=== PATIENT | male | born 1965 | race Caucasian/White ===

== ENCOUNTER 2017-11-19 18:40 | Observation (INO) ==
[2017-11-19] MEDS ORDERED: Tetanus/Diphtheria Toxoid Adult Vaccine Inj 0.5 ML Vial IM ONE (20:27)
[2017-11-19] MEDS ORDERED: Lisinopril 10 MG Tablet PO ONE (20:27)
[2017-11-19] MEDS ORDERED: Sod Chloride 0.9% Inj 1,000 ML IV.CONT SCH (20:30)
--- NOTE | 2017-11-19 20:37 | ED ---
HPI General Chief complaint: Neuro Symptoms/Deficit Stated complaint: Neuro/Stroke Symptoms Time Seen by Provider: 11/19/17 20:15 History of Present Illness HPI narrative: This is a 52-year-old male with history of hypertension presents for evaluation. Reports that this afternoon he was walking his dog when he developed a headache and right eye blurred vision. Symptoms lasted for several minutes and then resolved. Currently asymptomatic. He reports that he has a history of central retinal vein occlusion in his right eye 2008 with his vision essentially normal for the past several years in his right eye. He reports history of central retinal vein occlusion in the left eye in 2017 with significant vision loss since then. Reports a history of hypertension, has been off of his lisinopril for several months. He reports that he is currently homeless, living in his car, traveled down from [place] a few months ago. Denies chest pain, shortness of breath, nausea or vomiting, slurred speech , facial droop, numbness or tingling or weakness in extremities. No Other complaints. Related Data Allergies Allergy/AdvReac Type Severity Reaction Status Date / Time No Known Allergies Allergy Unverified 11/19/17 20:27 Review of Systems Except as stated in HPI: all other systems reviewed are negative PMFSH Medical History Medical History Central retinal vein occlusion of both eyes (Acute) Hypertension (Acute) Social History Social History Substance History: No History of Abuse Smoking Status: Never smoker How Often Do You Have a Drink Containing Alcohol: Never Recent Travel in [facility] within the Last 8 Weeks: No Recent Out of Country Travel within the Last 8 Weeks: No Immunization History Tetanus Immunization: >5 Years Hx Influenza Vaccine This Season: No Exam Narrative Exam Narrative: GENERAL: Well-nourished male in no acute distress SKIN: Warm and dry. Superficial linear scabbed abrasions noted on the extremities. HEAD: Atraumatic. Normocephalic. EYES: Pupils equal and round reactive to light extraocular muscles are intact ENT: No nasal bleeding or discharge. Mucous membranes pink and moist. NECK: Trachea midline. No JVD. CARDIOVASCULAR: Regular rate and rhythm. No murmur appreciated. RESPIRATORY: No accessory muscle use. Clear to auscultation. Breath sounds equal bilaterally. GASTROINTESTINAL: Abdomen soft, non-tender, nondistended. Hepatic and splenic margins not palpable. MUSCULOSKELETAL: No obvious deformities. No clubbing. No cyanosis. No edema. NEUROLOGICAL: Awake and alert. No obvious cranial nerve deficits. Motor grossly within normal limits. Normal speech. No extremity drift, normal finger to nose, heel to ambrosio bilaterally PSYCHIATRIC: Appropriate mood and affect; insight and judgment normal. Course Initial Documented Vital Signs Temperature 98.9 F 11/19/17 18:46 Pulse Rate 104 H 11/19/17 18:46 Respiratory Rate 16 11/19/17 18:46 Blood Pressure 163/115 H 11/19/17 18:46 Pulse Oximetry 97 11/19/17 18:46 Last Documented Vital Signs Temperature 98.9 F 11/19/17 18:46 Pulse Rate 104 H 11/19/17 18:46 Respiratory Rate 16 11/19/17 18:46 Blood Pressure 163/115 H 11/19/17 18:46 Pulse Oximetry 96 11/19/17 20:38 Medical Decision Making CHRISTA Attestation CHRISTA supervised visit: Yes Attestation: I, Dr. Hutson, have reviewed the advance practice practitioner's documentation and am in agreement, met with the patient face to face, made the diagnosis, and the medical decision making was done by me. *My assessment and Findings: patient will be admitted for TIA workup MDM Narrative Medical decision making narrative: The patient was placed on ECG monitoring pulse oximetry. A 12-lead EKG was obtained revealing sinus rhythm with rate of 97, lab work, CT the brain has been ordered. The patient has what appears to be self-inflicted scabbed abrasions on the extremities. He reports that he was upset a few weeks ago given his homeless situation and out of frustration he used a blade to cut himself. He denies any suicidal ideation however. He denies doing anything else to hurt himself. Lab work is unremarkable. CT of the brain reveals no acute abnormalities. The patient was given a full dose aspirin. At this point time the plan is to admit him for further evaluation and treatment of potential TIA. He is agreeable. Differential Diagnosis Differential Diagnosis: TIA, central retinal vein occlusion, central retinal artery occlusion CVA, acute glaucoma Lab Data Result diagrams: 11/19/17 21:00 11/19/17 21:00 Lab Results 11/19/17 11/19/17 11/19/17 Range/Units 21:00 21:00 21:00 WBC 9.2 (4.0-11.0) th/mm3 RBC 4.98 (4.50-5.90) mil/mm3 Hgb 15.4 (13.0-17.0) gm/dL Hct 43.4 (39.0-51.0) % MCV 87.2 (80.0-100.0) fL MCH 30.9 (27.0-34.0) pg MCHC 35.5 (32.0-36.0) % RDW 12.6 (11.6-17.2) % Plt Count 285 (150-450) th/mm3 MPV 7.9 (7.0-11.0) fL Neut % (Auto) 57.4 (16.0-70.0) % Lymph % (Auto) 30.9 (9.0-44.0) % [place] % (Auto) 10.0 H (0.0-8.0) % Eos % (Auto) 0.9 (0.0-4.0) % Baso % (Auto) 0.8 (0.0-2.0) % Neut # (Auto) 5.3 (1.8-7.7) th/mm3 Lymph # (Auto) 2.9 (1.0-4.8) th/mm3 [place] # (Auto) 0.9 (0.0-0.9) th/mm3 Eos # (Auto) 0.1 (0.0-0.4) th/mm3 Baso # (Auto) 0.1 (0.0-0.2) th/mm3 WBC Differential . Differential Comment Auto diff final PT 10.7 (9.8-11.6) sec INR 1.1 Ratio APTT 24.6 (24.3-30.1) sec Sodium 139 (136-145) meq/L Potassium 3.8 (3.5-5.1) meq/L Chloride 105 (98-107) meq/L Carbon Dioxide 25.2 (21.0-32.0) meq/L Anion Gap 9 (5-15) meq/L BUN 15 (7-18) mg/dL Creatinine 0.87 (0.60-1.30) mg/dL Estimated GFR Greater than 89 (>89) mL/min Random Glucose 128 H (74-106) mg/dL Calcium 9.3 (8.5-10.1) mg/dL Total Creatine Kinase 131 (39-308) U/L CK-MB (CK-2) 1.3 (0.5-3.6) ng/mL Troponin I Less than 0.02 L (0.02-0.05) ng/mL Imaging Data Radiologist's impression: Head CT 11/19/17 20:27 CONCLUSION: 1. No acute findings in the brain. . Discharge Plan Discharge Disposition Patient Disposition: 30 Still Patient Discharge Condition Condition: Stable Discharge Details Diagnosis: Transient ischemic attack Physicians Team ED Provider: Yakelin Hutson ED Midlevel Provider: Richar Bray Primary Care Provider: Primary Care Meera Santana Attending Provider: Yakelin Macias Status ED Status: With Doctor
[2017-11-19 21:16] LABS: Baso # (Auto) 0.1 th/mm3 (0.0-0.2); Baso % (Auto) 0.8 % (0.0-2.0); Eos # (Auto) 0.1 th/mm3 (0.0-0.4); Eos % (Auto) 0.9 % (0.0-4.0); Hematocrit 43.4 % (39.0-51.0); Hemoglobin 15.4 gm/dL (13.0-17.0); Lymph # (Auto) 2.9 th/mm3 (1.0-4.8); Lymph % (Auto) 30.9 % (9.0-44.0); Mean Corpuscular HGB Conc 35.5 % (32.0-36.0); Mean Corpuscular Hemoglobin 30.9 pg (27.0-34.0); Mean Corpuscular Volume 87.2 fL (80.0-100.0); Mean Platelet Volume 7.9 fL (7.0-11.0); Mono # (Auto) 0.9 th/mm3 (0.0-0.9); Neut # (Auto) 5.3 th/mm3 (1.8-7.7); Neut % (Auto) 57.4 % (16.0-70.0); Platelet Count 285 th/mm3 (150-450); Red Blood Count 4.98 mil/mm3 (4.50-5.90); Red Cell Distribution Width 12.6 % (11.6-17.2); White Blood Count 9.2 th/mm3 (4.0-11.0)
[2017-11-19 21:27] LABS: Activated Partial Thrombo Time 24.6 sec (24.3-30.1); INR 1.1 Ratio; Prothrombin Time 10.7 sec (9.8-11.6)
[2017-11-19 21:37] LABS: Anion Gap 9 meq/L (5-15); Blood Urea Nitrogen 15 mg/dL (7-18); Calcium 9.3 mg/dL (8.5-10.1); Carbon Dioxide 25.2 meq/L (21.0-32.0); Chloride 105 meq/L (98-107); Glomerular Filtration Rate Greater Than 89 mL/min (>89); Glucose,Random 128 mg/dL (74-106); Potassium 3.8 meq/L (3.5-5.1); Sodium 139 meq/L (136-145)
[2017-11-19 21:41] LABS: Creatine Kinase 131 U/L (39-308)
[2017-11-19 21:53] LABS: Creatine Kinase MB 1.3 ng/mL (0.5-3.6)
--- NOTE | 2017-11-19 23:01 | CT ---
EXAM DATE: 11/19/2017 10:39 PM EDT AGE/SEX: 52 years / Male INDICATIONS: Vision changes. CLINICAL DATA: This is the patient's initial encounter. Patient reports that signs and symptoms have been present for 1 day and indicates a pain score of 0/10. MEDICAL/SURGICAL HISTORY: Cerebrovascular disease. None. RADIATION DOSE: 56.35 CTDI (mGy) COMPARISON: No prior exams available for comparison. TECHNIQUE: CT of the head without contrast. Using automated exposure control and adjustment of the mA and/or kV according to patient size, radiation dose was kept as low as reasonably achievable to ob tain optimal diagnostic quality images. DICOM format image data is available electronically for revi ew and comparison. FINDINGS: Cerebrum: The ventricles are normal for age. No evidence of midline shift, mass lesion, hemorrhage or acute infarction. No extraaxial fluid collections are seen. Posterior Fossa: The cerebellum and brainstem are intact. The 4th ventricle is midline. The cerebe llopontine angle is unremarkable. Extracranial: The visualized portion of the orbits is intact. Skull: The calvaria is intact. No evidence of skull fracture. CONCLUSION: 1. No acute findings in the brain. . Electronically signed by: Calixto Turcios MD 11/19/2017 11:00 PM EDT
[2017-11-19] MEDS ORDERED: Aspirin 325 MG Tablet PO ONE (23:02)
[2017-11-20] MEDS ORDERED: Dextrose 50% in Water 50 ML Vial IV.PUSH PRN (00:32)
--- NOTE | 2017-11-20 01:00 | P.HP ---
History of Present Illness Service: [facility] Primary Care Physician: No Primary Care Physician History of Present Illness: 52-year-old male with past medical history significant for hypertension and history of retinal vein occlusion presents the emergency department for the evaluation of lightheadedness and blurry vision. 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 He states the symptoms were similar in his right eye today when his vision became blurry. The symptoms have now resolved. The patient denies any headaches. No fever/chills. No nausea/vomiting/diarrhea. No chest pain or shortness of breath. Review of Systems All other systems reviewed negative except as stated in HPI PMFSH - History History Provided By: Patient - Medical / Surgical Hx Neg / Unobtainable Surgical History: No Previous Surgery - Medical History Medical History: Medical History (Last Updated 11/19/17 @ 20:22 by Yakelin Maay) Central retinal vein occlusion of both eyes Hypertension - Family History Family History: Family History (Last Updated 11/20/17 @ 00:50 by Yakelin Macias MD) Other Diabetes - Tobacco History Smoking Status: Never smoker - Alcohol History How Often Do You Have a Drink Containing Alcohol: Never - Substance Use History Substance History: No History of Abuse - Travel History Recent Travel in the [place] Within the Last 8 Weeks: No Recent Travel Out of the Country Within the Last 8 Weeks: No - Immunization History Tetanus Immunization: >5 Years Hx Influenza Vaccine This Season: No Medications and Allergies Active Medications: Active Medications Dextrose (D50w Vial) 50 ml IV.PUSH UNSCH PRN PRN Reason: PER HYPOGLYCEMIA PROTOCOL Glucagon (Glucagon Inj) 1 mg OTHER PRN PRN PRN Reason: for Hypoglycemia Protocol Sodium Chloride (Ns Inj) 1,000 mls @ 70 mls/hr IV.CONT .[id number] CHARLY Stop: 11/20/17 10:47 Last Admin: 11/20/17 00:21 Dose: 70 mls/hr Insulin Aspart (Novolog Insulin Correctional Sugar Inj) 0 unit SQ ACHS CHARLY; Protocol Sodium Chloride (Ns Flush) 2 ml IV.FLUSH PRN PRN PRN Reason: FLUSH AFTER USING IV ACCESS Last Admin: 11/20/17 00:23 Dose: 2 ml Allergies Allergy/AdvReac Type Severity Reaction Status Date / Time No Known Allergies Allergy Unverified 11/19/17 20:27 Home Medications Medication Instructions Recorded Confirmed Type No Known Home Medications 11/20/17 11/20/17 History Exam Vital signs: Vital Signs 11/19/17 18:46 11/19/17 20:27 11/19/17 20:38 Temperature 98.9 F Pulse Rate 104 H Respiratory Rate 16 Blood Pressure 163/115 H Pulse Oximetry 97 97 96 11/19/17 23:34 Temperature Pulse Rate 73 Respiratory Rate 16 Blood Pressure 141/92 H Pulse Oximetry 96 Intake & Output 11/19/17 11/19/17 11/20/17 06:59 18:59 06:59 Weight 74.843 kg Narrative: Gen.: No acute distress Head: Normocephalic. Atraumatic. EENT: Pupils equal round and reactive to light. Nose without drainage. Airway intact. Throat without injection. Cardiovascular: Regular rate and rhythm. No murmurs, rubs or gallops. Respiratory: Lungs clear to auscultation bilaterally. No wheezes or rhonchi. Abdomen: Soft, nontender, nondistended. No peritoneal signs. Musculoskeletal: No gross deformities. No edema. Skin: No obvious rashes or erythema. Neuro: Cranial nerves II through XII grossly intact. Sensation intact throughout. 5/5 strength throughout. Psych: Appropriate mood and affect Results - Labs CBC & Chem 7: 11/19/17 21:00 11/19/17 21:00 Labs: Laboratory Results - last 24 hr 11/19/17 11/19/17 11/19/17 21:00 21:00 21:00 WBC 9.2 RBC 4.98 Hgb 15.4 Hct 43.4 MCV 87.2 MCH 30.9 MCHC 35.5 RDW 12.6 Plt Count 285 MPV 7.9 Neut % (Auto) 57.4 Lymph % (Auto) 30.9 [place] % (Auto) 10.0 H Eos % (Auto) 0.9 Baso % (Auto) 0.8 Neut # (Auto) 5.3 Lymph # (Auto) 2.9 [place] # (Auto) 0.9 Eos # (Auto) 0.1 Baso # (Auto) 0.1 WBC Differential . Differential Comment Auto diff final PT 10.7 INR 1.1 APTT 24.6 Sodium 139 Potassium 3.8 Chloride 105 Carbon Dioxide 25.2 Anion Gap 9 BUN 15 Creatinine 0.87 Estimated GFR Greater than 89 Random Glucose 128 H Calcium 9.3 Total Creatine Kinase 131 CK-MB (CK-2) 1.3 Troponin I Less than 0.02 L - Imaging Impressions Head CT 11/19/17 20:27 CONCLUSION: 1. No acute findings in the brain. . Caprini VTE Risk Assessment Caprini VTE Risk Assessment: No/Low Risk (score <= 1) Caprini Risk Assessment Model: Point Value = 1 Point Value = 2 Point Value = 3 Point Value = 5 Age 41-60 Minor surgery BMI > 25 kg/m2 Swollen legs Varicose veins or History of unexplained or recurrent spontaneous Oral contraceptives or hormone replacement Sepsis (< 1 month) Serious lung disease, including pneumonia (< 1 month) Abnormal pulmonary function Acute myocardial infarction Congestive heart failure (< 1 month) History of inflammatory bowel disease Medical patient at bed rest Age 61-74 Arthroscopic surgery Major open surgery (> 45 min) Laparoscopic surgery (> 45 min) Malignancy Confined to bed (> 72 hours) Immobilizing plaster cast Central venous access Age >= 75 History of VTE Family history of VTE Factor V Leiden Prothrombin [id number] Lupus anticoagulant Anticardiolipin antibodies Elevated serum homocysteine Heparin-induced thrombocytopenia Other congenital or acquired thrombophilia Stroke (< 1 month) Elective arthroplasty Hip, pelvis, or leg fracture Acute spinal cord injury (< 1 month) Prophylaxis Regimen: Total Risk Factor Score Risk Level Prophylaxis Regimen 0-1 Low Early ambulation 2 Moderate Order ONE of the following: *Sequential Compression Device (SCD) *Heparin 5000 units SQ BID 3-4 Higher Order ONE of the following medications: *Heparin 5000 units SQ TID *Enoxaparin/Lovenox 40 mg SQ daily (WT < 150 kg, CrCl > 30 mL/min) *Enoxaparin/Lovenox 30 mg SQ daily (WT < 150 kg, CrCl > 10-29 mL/min) *Enoxaparin/Lovenox 30 mg SQ BID (WT < 150 kg, CrCl > 30 mL/min) AND/OR *Sequential Compression Device (SCD) 5 or more Highest Order ONE of the following medications: *Heparin 5000 units SQ TID (Preferred with Epidurals) *Enoxaparin/Lovenox 40 mg SQ daily (WT < 150 kg, CrCl > 30 mL/min) *Enoxaparin/Lovenox 30 mg SQ daily (WT < 150 kg, CrCl > 10-29 mL/min) *Enoxaparin/Lovenox 30 mg SQ BID (WT < 150 kg, CrCl > 30 mL/min) AND *Sequential Compression Device (SCD) Assessment and Plan - Plan Assessment/plan: 1. TIA Head CT negative for acute process Symptoms now resolved Carotid ultrasound, MRI/MRA pending Neurology consulted, appreciate recommendations 2. Hypertension Lisinopril Monitor FEN N.p.o. Electrolytes: Order and replete as needed NS at 70 c/hr
[2017-11-20] MEDS: Sod Chloride 0.9% Inj 1,000 ML IV.CONT SCH (07:00)
--- NOTE | 2017-11-20 07:58 | P.PN ---
Subjective Interval history: Follow-up TIA. States his visual deficits unchanged from yesterday. He has been depressed and cut himself yesterday. He denies being suicidal at this time. He contracts for safety. He is asking for help as he is homeless Physical Exam Vital signs: Vital Signs 11/19/17 18:46 11/19/17 20:27 11/19/17 20:38 Temperature 98.9 F Pulse Rate 104 H Respiratory Rate 16 Blood Pressure 163/115 H Pulse Oximetry 97 97 96 11/19/17 23:34 11/20/17 02:54 11/20/17 04:00 Temperature 97.8 F Pulse Rate 73 73 70 Respiratory Rate 16 15 18 Blood Pressure 141/92 H 146/94 H 146/87 H Pulse Oximetry 96 96 97 Intake & Output 11/19/17 11/20/17 11/20/17 18:59 06:59 18:59 Output Total 0 / 0 Balance 0 / 0 Weight 74.843 kg 74.843 kg Output: Urine 0 / 0 Other: Weight On Admission 165 kg Narrative: Gen.: No acute distress Cardiovascular: Regular rate and rhythm. No murmurs, rubs or gallops. Respiratory: Lungs clear to auscultation bilaterally. No wheezes or rhonchi. Abdomen: Soft, nontender, nondistended. No peritoneal signs. Musculoskeletal: No gross deformities. No edema. Skin: Superficial clots in his extremities Neuro: Cranial nerves II through XII grossly intact. Sensation intact throughout. 5/5 strength throughout. Psych: Appropriate mood and affect Results - Labs CBC & Chem 7: 11/19/17 21:00 11/19/17 21:00 Laboratory Results - last 24 hr 11/19/17 11/19/17 11/19/17 21:00 21:00 21:00 WBC 9.2 RBC 4.98 Hgb 15.4 Hct 43.4 MCV 87.2 MCH 30.9 MCHC 35.5 RDW 12.6 Plt Count 285 MPV 7.9 Neut % (Auto) 57.4 Lymph % (Auto) 30.9 [place] % (Auto) 10.0 H Eos % (Auto) 0.9 Baso % (Auto) 0.8 Neut # (Auto) 5.3 Lymph # (Auto) 2.9 [place] # (Auto) 0.9 Eos # (Auto) 0.1 Baso # (Auto) 0.1 WBC Differential . Differential Comment Auto diff final PT 10.7 INR 1.1 APTT 24.6 Sodium 139 Potassium 3.8 Chloride 105 Carbon Dioxide 25.2 Anion Gap 9 BUN 15 Creatinine 0.87 Estimated GFR Greater than 89 Random Glucose 128 H Calcium 9.3 Total Creatine Kinase 131 CK-MB (CK-2) 1.3 Troponin I Less than 0.02 L - Imaging Impressions Head CT 11/19/17 20:27 CONCLUSION: 1. No acute findings in the brain. . - Procedures None Assessment and Plan - Plan 1. TIA Head CT negative for acute process Symptoms now resolved ECHO pending, negative carotid ultrasound, MRI/MRA Neurology consulted, appreciate recommendations Ct asa f/u a1c and lipid profile 2. Hypertension Lisinopril Monitor 3. Depression. Consult psychiatry 4. Superficial cuts in his extremities. No signs of infection. Wound care FEN cardiac diet Electrolytes: Order and replete as needed NS at 70 c/hr DVT proph w SCD Discharge Planning: Consult case management
[2017-11-20] MEDS ORDERED: Bisacodyl 10 MG Supp RECTAL PRN (08:03)
[2017-11-20] MEDS ORDERED: Acetaminophen 325 MG Tablet PO PRN (08:03)
[2017-11-20] MEDS: Insulin NovoLOG Aspart Correctional Sugar Inj SQ SCH ×4 (08:14→22:34)
--- NOTE | 2017-11-20 10:27 | US ---
EXAM DATE: 11/20/2017 10:18 AM EDT AGE/SEX: 52 years / Male INDICATIONS: Lightheadedness and right eye blurred vision. CLINICAL DATA: This is the patient's initial encounter. Patient reports that signs and symptoms have been present for 1 day and indicates a pain score of 0/10. MEDICAL/SURGICAL HISTORY: Hypertension. Diabetes. CVA - 2008, 2016. Central retinal vein occl usion of bilateral eyes. Partial left eye blindness. None. COMPARISON: No prior exams available for comparison. VELOCITY PARAMETERS: ICA/CCA Ratio: Right 0.8 , Left 0.8 ICA: Right 83 cm/sec, Left 86 cm/sec CCA: Right 108 cm/sec, Left 107 cm/sec ECA: Right 136 cm/sec, Left 111 cm/sec Vertebral: Right 46 cm/sec antegrade, Left 51 cm/sec antegrade FINDINGS: Right Carotid: Mild arteriosclerotic plaque is visualized.The waveforms are within normal limits. Left Carotid: Mild arteriosclerotic plaque is visualized. The waveforms are within normal limits. Other: None. CONCLUSION: No hemodynamically significant stenosis in either carotid artery Electronically signed by: Luis Abarca MD 11/20/2017 10:26 AM EDT
[2017-11-20] MEDS: Lisinopril 10 MG Tablet PO SCH (10:43)
[2017-11-20] MEDS: Aspirin 325 MG Tablet PO SCH (10:44)
[2017-11-20] MEDS: Senna/Docusate Sodium 8.6/50 MG Tablet PO SCH ×2 (10:54→22:33)
--- NOTE | 2017-11-20 11:52 | MR ---
EXAM DATE: 11/20/2017 11:34 AM EDT AGE/SEX: 52 years / Male INDICATIONS: TIA. CLINICAL DATA: This is the patient's initial encounter. Patient reports that signs and symptoms have been present for 2 days and indicates a pain score of 0/10. MEDICAL/SURGICAL HISTORY: Hypertension. Stroke. None. COMPARISON: No prior exams available for comparison. TECHNIQUE: Multiplanar, multisequence examination of the brain was performed without contrast. FINDINGS: There is no intracranial mass or midline shift. No hydrocephalus. No recent infarct identified on the diffusion weighted images. No abnormal extra-axial fluid collections. No sellar mass. CONCLUSION: 1. No acute findings. No recent infarct. Electronically signed by: Fede Alfaro MD 11/20/2017 11:51 AM EDT
--- NOTE | 2017-11-20 11:53 | MR ---
EXAM DATE: 11/20/2017 11:33 AM EDT AGE/SEX: 52 years / Male INDICATIONS: TIA. CLINICAL DATA: This is the patient's initial encounter. Patient reports that signs and symptoms have been present for 2 days and indicates a pain score of 0/10. MEDICAL/SURGICAL HISTORY: Stroke. None. COMPARISON: [facility] [place], MR HEAD W/O CONTRAST, 11/20/2017. . TECHNIQUE: 3D [id number] MRA was performed. Source images, multiplanar STS MIP, and 3D volum e MIP reconstructions were reviewed. FINDINGS: There is excellent visualization of the major intracranial arteries out to the second-order branch ve ssels. There is no evidence for aneurysm, vessel truncation or stenosis, and no evidence for vascula r malformation. CONCLUSION: 1. Negative MRA [place] ([place]) non contrast. Electronically signed by: Calixto Matos MD 11/20/2017 11:52 AM EDT
--- NOTE | 2017-11-20 14:30 | MB ---
cc: Leodan Armenta MD, PhD DATE: 11/20/2017 REASON FOR CONSULTATION: Possible TIA. HISTORY OF PRESENT ILLNESS: Mr. Denis is a 52-year-old man who states he had a stroke in 2008 causing partial visual loss in the right eye, then another stroke in 2017 causing vision loss in the left eye. He states he has had partial blindness. He states that he is homeless, is sleeping in his car, and has been in quite a bit of stress. He has been self-inflicting lacerations and cuts to both upper and lower extremities saying that he wanted to end his life because of the severe stress. He is in the parking lot at the hospital in his car. He said he had difficulty with worsening vision in the right eye and dizziness, but he might be having a stroke, so presented to the emergency room. PAST MEDICAL HISTORY: Hypertension, history of retinal vein occlusion in the right and left eye in 2008 and 2016 causing partial blindness. MEDICATIONS AT HOME: None. CURRENT MEDICATIONS IN THE HOSPITAL: 1. Aspirin 325 mg daily. 2. Tylenol p.r.n. 3. Bisacodyl p.r.n. 4. Lactulose p.r.n. 5. Zofran. 6. Senna. NEUROLOGICAL EXAMINATION: VITAL SIGNS: Blood pressure is 148/87, pulse 79, respiratory rate 16, temperature 97 degrees. HIGHER CORTICAL FUNCTIONS: Normal. CRANIAL NERVES: He states he cannot see in the left eye, cannot count fingers. He is able to count fingers in the right eye in all [place]. Pupils equal and reactive. The extraocular movements are intact. There is no facial asymmetry. MOTOR EXAM: No focal deficits are noted. No drift. Reflexes are symmetric. IMAGING STUDIES: MRI of the brain is normal. MRA of the brain is normal. Carotid ultrasound is normal. CT brain is normal. LABORATORY DATA: White count 9200, hemoglobin 15.4, hematocrit 43.4%, platelet count 285,000. PT 10.7, INR 1.1, aPTT 24.6. Sodium is 139, potassium 3.8, chloride 105, CO2 25.2, BUN is 15, creatinine 0.87, GFR 89, glucose 127, calcium 9.0. IMPRESSION: Possible transient ischemic attack versus psychogenic etiology of his symptoms. RECOMMENDATIONS: We will check an echocardiogram as well as lipid panel. Also recommend continuing the aspirin. We would also recommend psychiatry evaluation. Leodan Armenta MD, PhD KILO/ines , 02:03 PM , 02:13 PM
[2017-11-20 15:26] LABS: Chol/HDL Ratio 4.25 Ratio
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
[2017-11-20 17:42] LABS: Hemoglobin A1c 5.8 % (4.3-6.0)
--- NOTE | 2017-11-20 23:22 | ECG ---
Date Performed: 11/19/2017 Time Performed: 20:20:26 PTAGE: 52 years EKG: Sinus rhythm BORDERLINE LEFT AXIS DEVIATION BORDERLINE ECG NO PREVIOUS TRACING DOCTOR: Pedro Cardenas Interpretating Date/Time 11/20/2017 23:21:39
[2017-11-21] MEDS: Lisinopril 10 MG Tablet PO SCH (09:21)
[2017-11-21] MEDS: Aspirin 325 MG Tablet PO SCH (09:21)
[2017-11-21] MEDS: Senna/Docusate Sodium 8.6/50 MG Tablet PO SCH ×2 (09:21→21:30)
[2017-11-21] MEDS: Insulin NovoLOG Aspart Correctional Sugar Inj SQ SCH ×3 (09:25→21:32)
--- NOTE | 2017-11-21 12:53 | P.PN ---
Subjective Interval history: Follow-up TIA. No new symptoms. Agrees to be on aspirin and statin. Denies depression Physical Exam Vital signs: Vital Signs 11/20/17 16:00 11/20/17 20:00 11/21/17 00:00 Temperature 97.9 F 98.1 F 97.7 F Pulse Rate 77 84 66 Respiratory Rate 18 18 18 Blood Pressure 132/80 122/71 115/68 Pulse Oximetry 97 96 97 11/21/17 04:00 11/21/17 08:00 11/21/17 11:56 Temperature 97.4 F L 98.1 F 98.4 F Pulse Rate 77 80 85 Respiratory Rate 18 18 17 Blood Pressure 127/84 117/75 128/82 Pulse Oximetry 97 96 96 Intake & Output 11/20/17 11/21/17 11/21/17 18:59 06:59 18:59 Intake Total 1000 / 1000 720 / 720 Balance 1000 / 1000 720 / 720 Intake: IV 1000 / 1000 NS Inj 1,000 ML @ 70 mls/hr IV. 1000 / 1000 CONT .[id number] [facility] Rx#:[id number] Oral 720 / 720 Other: # Voids 3 3 Date of Last Bowel Movement 11/19/17 11/19/17 11/19/17 Narrative: Gen.: No acute distress Cardiovascular: Regular rate and rhythm. No murmurs, rubs or gallops. Respiratory: Lungs clear to auscultation bilaterally. No wheezes or rhonchi. Abdomen: Soft, nontender, nondistended. No peritoneal signs. Musculoskeletal: No gross deformities. No edema. Skin: Superficial clots in his extremities Neuro: Cranial nerves II through XII grossly intact. Sensation intact throughout. 5/5 strength throughout. Psych: Appropriate mood and affect Results - Labs CBC & Chem 7: 11/19/17 21:00 11/19/17 21:00 Laboratory Results - last 24 hr 11/20/17 11/20/17 11/20/17 14:09 14:09 22:31 POC Glucose 88 Hemoglobin A1c 5.8 Triglycerides 226 H Cholesterol 204 H LDL Cholesterol, Calc 111 H HDL Cholesterol 48.0 Cholesterol/HDL Ratio 4.25 11/21/17 08:12 POC Glucose 143 H Hemoglobin A1c Triglycerides Cholesterol LDL Cholesterol, Calc HDL Cholesterol Cholesterol/HDL Ratio - Imaging ITS Impressions Head CT 11/19/17 20:27 CONCLUSION: 1. No acute findings in the brain. . Carotid Doppler Study 11/20/17 00:00 CONCLUSION: No hemodynamically significant stenosis in either carotid artery Head MRI 11/20/17 00:00 CONCLUSION: 1. No acute findings. No recent infarct. Head MRA 11/20/17 00:00 CONCLUSION: 1. Negative MRA Cow ([place] [facility] [place]) non contrast. - Procedures None Assessment and Plan - Plan 1. TIA. Stroke workup negative pending echocardiogram. Risk factor modification start statin possible side effects and adverse reactions discussed with the patient. Continue aspirin. 2. Hypertension. Stable continue lisinopril 3. Adjustment disorder status post psychiatry evaluation. 4. Superficial cuts in his extremities. No signs of infection. Wound care DVT proph w SCD Discharge Planning: Discharge patient to home pending PT evaluation Condition on discharge: Improved Regular Diet as tolerated heart healthy Ad Kathleen activity no driving Rx written: Aspirin, Lipitor and lisinopril Follow-up with primary care physician
--- NOTE | 2017-11-21 14:31 | ECHRPT ---
Indication: CVA/TIA CONCLUSIONS Normal left ventricular size. Wall thickness is measured at the upper limits of normal. The left ventricular systolic function is hyperdynamic with an estimated ejection fraction in the ra nge of 65- 70%. Trace mitral valve regurgitation. There is trace tricuspid valve regurgitation. The estimated pulmonary arterial pressure is 22.3 mmHg. The pulmonary valve is not well visualized. BP: / HR: Rhythm: Sinus MEASUREMENTS (Male / Female) Normal Values Technical Quality:Fair 2D ECHO LV Diastolic Diameter PLAX 4.4 cm 4.2 - 5.9 / 3.9 - 5.3 cm LV Systolic Diameter PLAX 3.0 cm IVS Diastolic Thickness 1.0 cm 0.6 - 1.0 / 0.6 - 0.9 cm LVPW Diastolic Thickness 1.0 cm 0.6 - 1.0 / 0.6 - 0.9 cm LV Relative Wall Thickness 0.5 RV Internal Dim ED PLAX 2.8 cm LVOT Diameter 2.0 cm Aortic Root Diameter 2.7 cm LA Systolic Diameter LX 2.7 cm 3.0 - 4.0 / 2.7 - 3.8 cm M-MODE AV Cusp Separation MM 2.0 cm DOPPLER AV Peak Velocity 110.0 cm/s AV Peak Gradient 4.8 mmHg AV Mean Gradient 3.0 mmHg AV Velocity Time Integral 19.4 cm LVOT Peak Velocity 87.2 cm/s LVOT Peak Gradient 3.0 mmHg LVOT Velocity Time Integral 14.1 cm AV Area Cont Eq vti 2.3 cm AV Area Cont Eq pk 2.5 cm Mitral E Point Velocity 57.3 cm/s Mitral A Point Velocity 50.3 cm/s Mitral E to A Ratio 1.1 LV E' Lateral Velocity 12.4 cm/s Mitral E to LV E' Lateral Ratio 4.6 LV E' Septal Velocity 7.1 cm/s Mitral E to LV E' Septal Ratio 8.0 TR Peak Velocity 175.0 cm/s TR Peak Gradient 12.3 mmHg Right Atrial Pressure 10.0 mmHg Pulmonary Artery Systolic Pressu 22.3 mmHg Right Ventricular Systolic Press 22.3 mmHg PV Peak Velocity 82.0 cm/s PV Peak Gradient 2.7 mmHg FINDINGS LEFT VENTRICLE Normal left ventricular size. Wall thickness is measured at the upper limits of normal. The left ventricular systolic function is hyperdynamic with an estimated ejection fraction in the ra nge of 65- 70%. RIGHT VENTRICLE Normal right ventricular size and systolic function. LEFT ATRIUM The left atrial size is normal. RIGHT ATRIUM The right atrial size is normal. ATRIAL SEPTUM No atrial level shunt is demonstrated by color flow Doppler interrogation. AORTA The aortic root and proximal ascending aorta are not well visualized. MITRAL VALVE Trace mitral valve regurgitation. AORTIC VALVE Trileaflet aortic valve. No aortic valve stenosis or regurgitation. TRICUSPID VALVE There is trace tricuspid valve regurgitation. The estimated pulmonary arterial pressure is 22.3 mmHg. PULMONARY VALVE The pulmonary valve is not well visualized. VESSELS The inferior vena cava is normal in size. PERICARDIUM No pericardial effusion. Benny Espinoza MD, FACC, FSCAI (Electronically Signed) Final Date:21 November 2017 14:30
[2017-11-21] MEDS: Sod Chloride 0.9% Inj 1,000 ML IV.CONT SCH ×2 (17:59→18:00)
--- NOTE | 2017-11-21 18:53 | P.PNNEU ---
Subjective Subjective Comments: No acute events reported No new neurologic sx. He states he has diminished vision right eye and abscenc of vision left eye which he states is back to his baseline Active Medications: Active Medications Acetaminophen (Tylenol) 650 mg PO Q4H PRN PRN Reason: Temp > 100.4 Al Hydroxide/Mg Hydroxide (Milk Of Magnesia Liq) 30 ml PO Q12H PRN PRN Reason: Mild Constipation Aspirin (Aspirin) 325 mg PO DAILY [facility] Last Admin: 11/21/17 09:21 Dose: Not Given Atorvastatin Calcium (Lipitor) 20 mg PO [facility] Bisacodyl (Dulcolax Supp) 10 mg RECTAL DAILY PRN PRN Reason: SEVERE CONSITIPATION Dextrose (D50w Vial) 50 ml IV.PUSH UNSCH PRN PRN Reason: PER HYPOGLYCEMIA PROTOCOL Glucagon (Glucagon Inj) 1 mg OTHER PRN PRN PRN Reason: for Hypoglycemia Protocol Sodium Chloride (Ns Inj) 1,000 mls @ 70 mls/hr IV.CONT .[id number] [facility] Last Admin: 11/21/17 18:00 Dose: Not Given Insulin Aspart (Novolog Insulin Correctional Sugar Inj) 0 unit SQ [facility]; Protocol Last Admin: 11/21/17 16:41 Dose: Not Given Lactulose (Lactulose Liq) 30 ml PO DAILY PRN PRN Reason: SEVERE CONSITIPATION Lisinopril (Prinivil) 10 mg PO DAILY [facility] Last Admin: 11/21/17 09:21 Dose: Not Given Ondansetron HCl (Zofran Inj) 4 mg IV.PUSH Q6H PRN PRN Reason: NAUSEA OR VOMITING Senna/Docusate Sodium (Inez-Colace) 1 tab PO BID [facility] Last Admin: 11/21/17 09:21 Dose: Not Given Sennosides (Senokot) 17.2 mg PO Q12H PRN PRN Reason: Moderate Constipation Sodium Chloride (Ns Flush) 2 ml IV.FLUSH PRN PRN PRN Reason: FLUSH AFTER USING IV ACCESS Last Admin: 11/20/17 00:23 Dose: 2 ml Allergies/Adverse Reactions: Allergies Allergy/AdvReac Type Severity Reaction Status Date / Time No Known Allergies Allergy Unverified 11/19/17 20:27 Physical Exam Vital signs: Vital Signs 11/20/17 20:00 11/21/17 00:00 11/21/17 04:00 Temperature 98.1 F 97.7 F 97.4 F L Pulse Rate 84 66 77 Respiratory Rate 18 Blood Pressure 122/71 115/68 127/84 Pulse Oximetry 96 97 97 11/21/17 08:00 11/21/17 11:56 11/21/17 16:00 Temperature 98.1 F 98.4 F 98.4 F Pulse Rate 80 85 86 Respiratory Rate 18 Blood Pressure 117/75 128/82 122/78 Pulse Oximetry 96 96 98 Intake & Output 11/20/17 11/21/17 11/21/17 18:59 06:59 18:59 Intake Total 1000 / 1000 720 / 720 680 / 680 Balance 1000 / 1000 720 / 720 680 / 680 Intake: IV 1000 / 1000 NS Inj 1,000 ML @ 70 mls/hr IV. 1000 / 1000 CONT .[id number] [facility] Rx#:[id number] Oral 720 / 720 680 / 680 Other: # Voids 3 3 3 Date of Last Bowel Movement 11/19/17 11/19/17 11/19/17 - Routine Neurological Exam alert, speech is normal Cn--pupils equal. He is able to orient and make eye contact during conversation No facial assymetry MOTOR-- no focal deficits. Objective Laboratory Results - last 24 hr 11/20/17 11/20/17 11/21/17 14:09 22:31 08:12 POC Glucose 88 143 H Hemoglobin A1c 5.8 Review/Management - Diagnosis (1) Transient ischemic attack Code(s): G45.9 - Transient cerebral ischemic attack, unspecified Status: Acute Current Visit: Yes - Review/Management Plan: continue asa and statin case management consult
[2017-11-22] MEDS: Sod Chloride 0.9% Inj 1,000 ML IV.CONT SCH (04:19)
[2017-11-22] MEDS: Lisinopril 10 MG Tablet PO SCH (08:35)
[2017-11-22] MEDS: Senna/Docusate Sodium 8.6/50 MG Tablet PO SCH (08:36)
[2017-11-22] MEDS: Aspirin 325 MG Tablet PO SCH (08:36)
[2017-11-22] MEDS: Insulin NovoLOG Aspart Correctional Sugar Inj SQ SCH ×3 (08:38→16:36)
[2017-11-22 09:21] VITALS: RESP 16
[2017-11-22 10:43] VITALS: PULSE 81
--- NOTE | 2017-11-22 14:20 | P.DS ---
Date of admission: 11/19/17 23:02 Primary care physician: No Primary Care Physician Brief History from admission: 52-year-old male with past medical history significant for hypertension and history of retinal vein occlusion presents the emergency department for the evaluation of lightheadedness and blurry vision. 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 He states the symptoms were similar in his right eye today when his vision became blurry. The symptoms have now resolved. The patient denies any headaches. No fever/chills. No nausea/vomiting/diarrhea. No chest pain or shortness of breath. DS: Medications - Discharge Medications Prescriptions: aspirin 81 mg PO DAILY #30 tab atorvastatin 20 mg PO HS #30 tab lisinopril 10 mg PO DAILY #30 tab DS: Summary Hospital Course: 1. TIA hx CVA with residual visual deficits. Stroke workup negative. Risk factor modification start statin possible side effects and adverse reactions discussed with the patient. Continue aspirin switch to enteric coated . 2. Hypertension. Stable continue lisinopril 3. Adjustment disorder status post psychiatry evaluation. No SI. Think he is manipulative 4. Superficial cuts in his extremities. No signs of infection. Wound care DVT proph w SCD - Time Spent with Patient Total time spent providing and/or coordinating discharge services: Less than 30 minutes - Quality: VTE Deep Vein Thrombosis/Pulmonary Embolism Present on Admission: No Exam Vital signs: Vital Signs 11/21/17 16:00 11/21/17 20:00 11/22/17 00:00 Temperature 98.4 F 98.5 F 97.9 F Pulse Rate 86 90 80 Respiratory Rate 18 17 16 Blood Pressure 122/78 125/85 125/79 Pulse Oximetry 98 95 95 11/22/17 04:00 11/22/17 08:00 11/22/17 09:00 Temperature 97.6 F 97.2 F L Pulse Rate 74 83 81 Respiratory Rate 17 16 Blood Pressure 123/79 146/89 H Pulse Oximetry 96 94 L 11/22/17 11:05 Temperature Pulse Rate Respiratory Rate Blood Pressure Pulse Oximetry 95 Intake & Output 11/21/17 11/22/17 11/22/17 18:59 06:59 18:59 Intake Total 680 / 680 Balance 680 / 680 Weight 75 kg Intake: Oral 680 / 680 Other: # Voids 3 3 Date of Last Bowel Movement 11/19/17 11/19/17 11/19/17 # Bowel Movements 1 Narrative: Gen.: No acute distress Cardiovascular: Regular rate and rhythm. No murmurs, rubs or gallops. Respiratory: Lungs clear to auscultation bilaterally. No wheezes or rhonchi. Abdomen: Soft, nontender, nondistended. No peritoneal signs. Musculoskeletal: No gross deformities. No edema. Skin: Superficial clots in his extremities Neuro: Cranial nerves II through XII grossly intact. Sensation intact throughout. 5/5 strength throughout. Psych: Appropriate mood and affect. No SI Results Procedures completed during hospitalization: None Labs on day of discharge: Labs from last 24 hours 11/22/17 11/21/17 08:37 21:31 POC Glucose 159 H 134 H - Impressions ITS Impressions Head CT 11/19/17 20:27 CONCLUSION: 1. No acute findings in the brain. . Carotid Doppler Study 11/20/17 00:00 CONCLUSION: No hemodynamically significant stenosis in either carotid artery Head MRI 11/20/17 00:00 CONCLUSION: 1. No acute findings. No recent infarct. Head MRA 11/20/17 00:00 CONCLUSION: 1. Negative MRA Cow ([place] [facility] [place]) non contrast. Discharge Plan - Discharge Disposition Patient Disposition: Discharge Home - Discharge Condition Condition: Stable - Discharge Order Discharge Orders: Discharge Order (Routine); Ordered 11/21/17 Ordered By: Ha Maldonado - Physicians Team Primary Care Provider: Primary Care Mistii,Meera Attending Provider: Ha Maldonado Other Providers: Leodan Armenta MD, PhD ; Luis Khan MD
[2017-11-22 16:50] VITALS: BP 142/93; TEMP 97.9; O2SAT 99
== END 2017-11-22 18:27 | disposition home or self-care (01) ==
LOC: NEPE 18:40 → N06 18:40 → NEDA 18:40 → N06 11-20 02:54
PROVIDERS: ADMIT Internal Medicine; ATTEND Internal Medicine